=== PATIENT | female | born 1985 | race Caucasian/White ===

== ENCOUNTER 2016-10-12 02:05 | Emergency (ER) | payer MEDICAID ==
--- NOTE | ~2016-10-12 | ER ---
PATIENT'S NAME: AYE BUSTOS [facility] AGE: 31 Y [address] ROOM: [place] [address] LOCATION: ED ADMIT DATE: 10/12/2016 ER/Outpatient Report DISCHARGE DATE: 10/12/2016 FAMILY PHYSICIAN: PHYSICIAN, NO ATTENDING PHYSICIAN: Lachelle Mora HISTORY: This is a 31-year-old female who presents today with a chief complaint of nausea, vomiting, and diarrhea. It started about 2 hours ago, woke her up from sleep she states. She states that she cannot think if she ate any exotic foods. She states that she has had vomiting about 50 times, diarrhea she is running to the bathroom now. There is no blood in the vomit, nor is there any blood in diarrhea. The vomit is not bilious either. She has no fever or chills, no urinary symptoms and no other complaints at this time. She states that she cannot think of any exotic foods. She has no sick contacts. No other complaints at this time. PAST MEDICAL HISTORY: None. PAST SURGICAL HISTORY: None. SOCIAL HISTORY: She smokes a pack per day, and she drinks alcohol rarely. She denies any drug use. MEDICATIONS: None. ALLERGIES: TO PHENERGAN AND CODEINE. REVIEW OF SYSTEMS: Reviewed by me and negative, with the exception of those discussed in the HPI. PHYSICAL EXAMINATION: VITAL SIGNS: She is 5 feet 2 inches. She weighs 107 kilos. Blood pressure; refused to take this, she had to use the bathroom. Heart rate is 71. Respiratory rate 28. Temp is 97.6. Sats are 98% on room air. GENERAL: She appears uncomfortable. She is not toxic though. She is speaking to me in full sentences. She is not actively vomiting at this time. She is alert and oriented x4. She moves all extremities without any difficulty. GCS is 15. HEART: Heart rate is regular rate and rhythm. Her blood pressure did go, and PATIENT'S NAME: AYE BUSTOS [facility] AGE: 31 Y [address] ROOM: [place] [address] LOCATION: ED ADMIT DATE: 10/12/2016 ER/Outpatient Report DISCHARGE DATE: 10/12/2016 FAMILY PHYSICIAN: PHYSICIAN, NO ATTENDING PHYSICIAN: Lachelle Mora she is around 140/78 at this time. LUNGS: Sounds are clear. She has no labored breathing. ABDOMEN: She has no real tenderness of her abdomen. There is very mild tenderness in the epigastric and left upper quadrant, but no right upper quadrant tenderness. No right lower quadrant. No suprapubic tenderness. No left lower quadrant tenderness. No CVA tenderness bilaterally. Hyperactive bowel sounds. SKIN: She is mildly diaphoretic. She appears that she does not feel well. She is not pale. She is not mottled. She is not cool to touch. EMERGENCY ROOM COURSE: The patient was given Zofran initially, and her nausea improved a lot. She says she has not vomited since. She has had diarrhea a few times since here, but no more vomiting. She is able to take the Bentyl pill as well. We did give her another Zofran since that helped her, and she says that she feels a lot better. She feels like she could go home. I did tell her that this is likely just a viral gastroenteritis and it will pass on its own. We will give her a script for some Zofran, and we will have her follow up as needed. Her abdominal pain is mostly this crampy pain. It is nontender on exam. She only has some very mild tenderness in the epigastric area, which I think is mostly for vomiting. I discussed this with her that she should consider rest, push fluids, take the Zofran as needed, eat bland foods as needed, and to follow up with her doctor as needed. IMPRESSION: Nausea, vomiting, and diarrhea. MD ANTWON JACOB/sheri /[id number] d: 10/12/16 1236 t: 11/10/16 1101, OUTPATIENT REPORT
== END 2016-10-12 04:07 | disposition disaster alternative care site (69) ==
LOC: GMED 02:05
DX: R11.2 Nausea with vomiting, unspecified (principal); R19.7 Diarrhea, unspecified; F17.200 Nicotine dependence, unspecified, uncomplicated; Z88.8 Allergy status to other drugs, medicaments and biological substances; Z88.5 Allergy status to narcotic agent

== ENCOUNTER 2017-01-08 10:02 | Emergency (ER) | payer MEDICAID ==
--- NOTE | ~2017-01-08 | ER ---
PATIENT'S NAME: AYE BUSTOS [facility] AGE: 32 Y [address] ROOM: [place] [address] LOCATION: [facility] ADMIT DATE: 01/08/2017 ER/Outpatient Report DISCHARGE DATE: 01/08/2017 FAMILY PHYSICIAN: Ruby Pittman MD ATTENDING PHYSICIAN: Zaida Shultz TIME OF ARRIVAL: 1002 hours. TIME SEEN: 1035 hours IDENTIFICATION: A 32-year-old female. CHIEF COMPLAINT: Boil on outside of vagina. HISTORY OF PRESENT ILLNESS: The patient is a 32-year-old female who noted lesion on the left labia two days ago, has been tender, increased in severity. Yesterday, she tried to drain it with a needle. She has increased in pain today. No fever or chills. No other systemic symptoms. She has never had this happen before. She has no diabetes or comorbid conditions. ALLERGIES: TO CODEINE AND PENICILLIN. CURRENT MEDICATIONS: Denies. MEDICAL PROBLEMS: Denies. SURGERIES: Tubal ligation. SOCIAL HISTORY: The patient lives here in [place]. Tobacco use, 1 pack per day for 16 years. Alcohol use, occasional. Marijuana, 2 times per week. FAMILY HISTORY: No pertinent family history. REVIEW OF SYSTEMS: PATIENT'S NAME: STRATFORDAYE [facility] AGE: 32 Y [address] ROOM: [place] [address] LOCATION: [facility] ADMIT DATE: 01/08/2017 ER/Outpatient Report DISCHARGE DATE: 01/08/2017 FAMILY PHYSICIAN: Ruby Pittman MD ATTENDING PHYSICIAN: Zaida Shultz All systems reviewed and negative other than what is noted in the HPI. Last menstrual period, she is spotting today. She is not been sexually active since July of 2016. No history of HSV or HPV. She was diagnosed with gonorrhea a year ago, symptoms have resolved. PHYSICAL EXAMINATION: VITALS: 5 feet 2 inches and weight 107.5 kg, blood pressure 119/69, pulse 91, respirations 14, temperature 99.1, and saturations 99% on room air. GENERAL: A pleasant female, in obvious distress. HEENT: Unremarkable. LUNGS: Clear to auscultation. HEART: Regular rate and rhythm. ABDOMEN: Soft, nondistended, nontender. SKIN: [place], warm, and dry. PELVIC: The patient's external genitalia has labial abscess on the left labia majora, very tender to palpation. I did discuss incision and drainage with her risks and benefits were discussed. She verbally consented to proceeding with I and D. The area was cleansed with Betadine and anesthetized with 1% Xylocaine and incision with an 11 blade was made in the dependent portion of the abscess and copious amounts of purulent fluid drained from the wound. 0.25 inch plain Nu-Gauze was used for packing. The patient tolerated the procedure well. IMPRESSION: Labial abscess, I and D'd with packing. PLAN: Sitz baths or warm compresses. Bactrim DS b.i.d. for 7 days. [place] 5/325 1-2 p.o. q.4-6 hours p.r.n. pain, dispensed 20 with 0 refills. Follow up if fever or increased in pain, otherwise follow up on Tuesday at [facility] to have the packing removed and have this rechecked. The patient understands and agrees, and all questions have been answered. MD TANVI OLIVER/sheri /[id number] d: 01/08/171923 t: 01/10/172043, OUTPATIENT REPORT
== END 2017-01-08 13:10 | disposition disaster alternative care site (69) ==
LOC: GMED 10:02
PROC: 0U9MXZZ Drainage of Vulva, External Approach (ICD-10-PCS; principal; 2017-01-08)
DX: N76.4 Abscess of vulva (principal); F17.210 Nicotine dependence, cigarettes, uncomplicated; Z88.0 Allergy status to penicillin; Z88.5 Allergy status to narcotic agent; Z98.51 Tubal ligation status